=== PATIENT | male | born 1985 | race African-American/Black ===

== ENCOUNTER 2019-02-25 01:48 | Emergency (ER) | payer OTHER ==
[~2019-02-25] VITALS: Ht 185.4 cm; Wt 86.2 kg
[2019-02-25] MEDS ORDERED: SODIUM CHLORIDE 0.9% 1000ML 1,000 ML ONE (02:17)
[2019-02-25] MEDS ORDERED: ONDANSETRON HCL INJ 2MG/ML 2ML 2 MG/ML VIAL ONE (02:17)
[2019-02-25] MEDS ORDERED: MORPHINE SULFATE INJ 4 MG/ML INJ 1ML ONE (02:17)
[2019-02-25] MEDS ORDERED: KETOROLAC TROMETHAMINE 30 MG/ML VIAL IV STA (02:18)
[2019-02-25] MEDS ORDERED: MORPHINE SULFATE 2 MG/ML SYR 1ML IV STA (03:06)
[2019-02-25] MEDS ORDERED: ONDANSETRON HCL INJ 2MG/ML 2ML 2 MG/ML VIAL IV STA (03:06)
[2019-02-25] MEDS ORDERED: KETOROLAC TROMETHAMINE 30 MG/ML VIAL ONE (03:13)
[2019-02-25] MEDS ORDERED: SODIUM CHLORIDE 0.9% 1000ML 1,000 ML IV ONE (03:15)
--- NOTE | 2019-02-25 03:36 | Diagnostic Imaging Report ---
EXAM: CT Abdomen and Pelvis WITHOUT contrast INDICATION: Right back pain COMPARISON: None. TECHNIQUE: Abdomen and pelvis were scanned utilizing a multidetector helical scanner from the lung base to the pubic symphysis without administration of IV contrast. Absence of intravenous contrast decreases sensitivity for detection of focal lesions and vascular pathology. Coronal and sagittal reformations were obtained. Stone protocol is performed. IV CONTRAST: None ORAL CONTRAST: None COMPLICATIONS: None RADIATION DOSE: Total DLP: 625 mGy*cm Estimated effective dose: (DLP x 0.015 x size factor) mSv CTDIvol has been reviewed. It is below the limits set by the Radiation Protocol Committee (RPC). Dose modulation, iterative reconstruction, and/or weight based adjustment of the mA/kV was utilized to reduce the radiation dose to as low as reasonably achievable. FINDINGS: LINES and TUBES: None. LOWER THORAX: Unremarkable HEPATOBILIARY: No focal hepatic lesions. No biliary ductal dilation. GALLBLADDER: No radio-opaque stones or sludge. No wall thickening. SPLEEN: No splenomegaly. PANCREAS: No focal masses or ductal dilatation. ADRENALS: No adrenal nodules KIDNEYS/URETERS: A 4 mm obstructing calculus at the right ureterovesicular junction (series 2 image 80). Mild right hydroureteronephrosis. A few punctate bilateral nonobstructive renal calculi. No masses. GI TRACT: No abnormal distention, wall thickening, or evidence of bowel obstruction. Appendix is normal. PELVIC ORGANS/BLADDER: Urinary bladder is underdistended. LYMPH NODES: No lymphadenopathy. VESSELS: Unremarkable. PERITONEUM / RETROPERITONEUM: No free air or fluid. BONES: Unremarkable. SOFT TISSUES: Unremarkable. IMPRESSION: A 4 mm obstructing calculus at the right ureterovesicular junction with mild right hydroureteronephrosis. Signed by: Gus Bernstein DO on 02/25/2019 3:33 AM
[2019-02-25] MEDS ORDERED: MORPHINE SULFATE INJ 4 MG/ML INJ 1ML IV ONE (04:00)
== END 2019-02-25 04:00 | disposition home or self-care (01) ==
LOC: FSED 01:48
DX: R10.31 Right lower quadrant pain (principal); R11.2 Nausea with vomiting, unspecified; N20.1 Calculus of ureter
CPT/HCPCS: 74176; 99284; J1885; J2270 ×2; J2405; J7030

== ENCOUNTER 2019-07-31 04:43 | Emergency (ER) | payer OTHER ==
[~2019-07-31] VITALS: Ht 185.4 cm; Wt 92.1 kg
[2019-07-31] MEDS ORDERED: ONDANSETRON HCL INJ 2MG/ML 2ML 2 MG/ML VIAL IV STA (05:10)
[2019-07-31] MEDS ORDERED: MORPHINE SULFATE 2 MG/ML SYR 1ML IV STA (05:10)
[2019-07-31] MEDS ORDERED: KETOROLAC TROMETHAMINE 30 MG/ML VIAL IV ONE (05:15)
[2019-07-31] MEDS ORDERED: MORPHINE SULFATE INJ 4 MG/ML INJ 1ML ONE (05:22)
--- NOTE | 2019-07-31 06:29 | Diagnostic Imaging Report ---
EXAM: CT Abdomen and Pelvis WITHOUT contrast INDICATION: Left flank pain COMPARISON: Abdominal CT 02/25/2019. TECHNIQUE: Abdomen and pelvis were scanned utilizing a multidetector helical scanner from the lung base to the pubic symphysis without administration of IV contrast. Absence of intravenous contrast decreases sensitivity for detection of focal lesions and vascular pathology. Coronal and sagittal reformations were obtained. Routine protocol was performed. IV CONTRAST: None ORAL CONTRAST: None COMPLICATIONS: None RADIATION DOSE: Total DLP: 764 mGy*cm Estimated effective dose: (DLP x 0.015 x size factor) mSv CTDIvol has been reviewed. It is below the limits set by the Radiation Protocol Committee (RPC). Dose modulation, iterative reconstruction, and/or weight based adjustment of the mA/kV was utilized to reduce the radiation dose to as low as reasonably achievable. FINDINGS: LINES and TUBES: None. LOWER THORAX: Unremarkable HEPATOBILIARY: No focal hepatic lesions. No biliary ductal dilation. GALLBLADDER: No radio-opaque stones or sludge. No wall thickening. SPLEEN: No splenomegaly. PANCREAS: No focal masses or ductal dilatation. ADRENALS: No adrenal nodules KIDNEYS/URETERS: A 5 mm obstructive calculus in the mid left ureter with mild upstream left hydroureteronephrosis. Additional punctate nonobstructive bilateral nephrolithiasis. No cystic or solid mass lesions. GI TRACT: No abnormal distention, wall thickening, or evidence of bowel obstruction. Appendix is normal. PELVIC ORGANS/BLADDER: Unremarkable. LYMPH NODES: No lymphadenopathy. VESSELS: Unremarkable. PERITONEUM / RETROPERITONEUM: No free air or fluid. BONES: Unremarkable. SOFT TISSUES: Unremarkable. IMPRESSION: A 5 mm obstructive calculus in the mid left ureter with mild upstream left hydroureteronephrosis. Additional punctate nonobstructive bilateral nephrolithiasis. Signed by: Gus Bernstein DO on 07/31/2019 6:25 AM
--- NOTE | 2019-07-31 06:34 | NUR ---
pt sleeping at this time. nad noted
[2019-07-31] MEDS ORDERED: KETOROLAC TROME10 MG PO (06:44)
[2019-07-31] MEDS ORDERED: TYLENOL WITH C1 EACH PO (06:45)
[2019-07-31] MEDS ORDERED: FLOMAX0.4 MG PO (06:45)
== END 2019-07-31 07:00 | disposition home or self-care (01) ==
LOC: FSED 04:43
DX: R10.32 Left lower quadrant pain (principal); R11.2 Nausea with vomiting, unspecified; N20.2 Calculus of kidney with calculus of ureter
CPT/HCPCS: 74176; 80053; 81003; 85025; 99284; J1885; J2270; J2405

== ENCOUNTER 2019-12-20 10:10 | Emergency (ER) | payer SELFPAY ==
[~2019-12-20] VITALS: Ht 185.4 cm; Wt 93.0 kg
[~2019-12-20 10:10] MED LIST: FLOMAX0.4 MG PO; KETOROLAC TROME10 MG PO; TYLENOL WITH C1 EACH PO
[2019-12-20] MEDS ORDERED: KETOROLAC TROMETHAMINE 30 MG/ML VIAL IV STA (10:42)
[2019-12-20] MEDS ORDERED: ONDANSETRON HCL INJ 2MG/ML 2ML 2 MG/ML VIAL IV STA (10:42)
[2019-12-20] MEDS ORDERED: KETOROLAC TROMETHAMINE 30 MG/ML VIAL ONE (10:43)
[2019-12-20] MEDS ORDERED: SODIUM CHLORIDE 0.9% 1000ML 1,000 ML ONE (10:43)
[2019-12-20] MEDS ORDERED: SODIUM CHLORIDE 0.9% 1000ML 1,000 ML IV SCH (10:45)
[2019-12-20] MEDS ORDERED: ONDANSETRON HCL INJ 2MG/ML 2ML 2 MG/ML VIAL ONE (11:00)
--- NOTE | 2019-12-20 11:24 | Diagnostic Imaging Report ---
EXAMINATION: CT of the abdomen and pelvis without contrast. TECHNIQUE: Spiral CT images of the abdomen and pelvis were performed from the lung bases to the lesser trochanters. No intravenous contrast was given per renal stone protocol. Coronal and sagittal reformatted images were obtained. COMPARISON: CT abdomen and pelvis without contrast 07/31/2019 CLINICAL HISTORY:Left flank pain which radiates to left testicle for 2 days DISCUSSION: ABSENCE OF INTRAVENOUS CONTRAST DECREASES SENSITIVITY FOR DETECTION OF FOCAL LESIONS AND VASCULAR PATHOLOGY. ABDOMEN/PELVIS: LOWER THORAX: Unremarkable. HEPATOBILIARY: No focal hepatic lesions. No intra or extrahepatic biliary ductal dilation. GALLBLADDER: No radio-opaque stones or sludge. No wall thickening. SPLEEN: No splenomegaly. PANCREAS: No focal masses or ductal dilatation. ADRENALS: No adrenal nodules. KIDNEYS/URETERS: Right: Nonobstructing calculi, as follows: * 3 mm calculus in the superior pole (series 2, image 34), stable. * 2-3 mm calculus in the interpolar region (series 2, image 38), new * Punctate calculus in the mid to inferior aspect (series 2, image 41), stable No ureteral calculi, hydronephrosis or obstruction. No contour abnormalities or perinephric stranding. Left: Unchanged 5-6 mm obstructing calculus in the proximal to mid left ureter (coronal image 42), which results in mild left hydronephrosis and mild to moderate proximal hydroureter. Nonobstructing calculi as follows: * Punctate calculus in the superior to mid aspect (series 2, image 33), stable. * Punctate nonobstructing calculi in the inferior pole (series 2, images 39 and 41), stable. No contour abnormalities or perinephric stranding. PELVIC ORGANS/BLADDER: Bladder is grossly unremarkable. No calculi, wall thickening or focal lesions. Prostate is unremarkable. PERITONEUM/RETROPERITONEUM: No free air or fluid. LYMPH NODES: No intra-abdominal,retroperitoneal, pelvic or inguinal lymphadenopathy. VESSELS: Unremarkable for noncontrast exam. GI TRACT: No bowel dilation or evidence of obstruction. No pericolic inflammatory changes. Appendix is well identified and normal in caliber. BONES AND SOFT TISSUES: No aggressive lytic lesions. No suspicious focal sclerotic lesions. Soft tissues are unremarkable. IMPRESSION: 1. No interval change in 5-6 mm obstructing calculus in the proximal to mid left ureter, which results in mild left hydronephrosis and mild to moderate proximal hydroureter. 2. Stable bilateral nonobstructing calculi, as described. A new 2-3 mm nonobstructing calculus is noted in the interpolar region of the right kidney. Signed by: Dr. Néstor Chau M.D. on 12/20/2019 11:21 AM
[2019-12-20] MEDS ORDERED: MORPHINE SULFATE 2 MG/ML SYR 1ML IV STA (11:45)
[2019-12-20] MEDS ORDERED: MORPHINE SULFATE INJ 4 MG/ML INJ 1ML ONE (11:50)
[2019-12-20 11:55] VITALS: BP 125/66
--- NOTE | 2019-12-20 13:04 | NUR ---
Dr. Velasquez informed that pt does not want to leave and wants a different rx for pain meds as he states that tylenol #3 does not work for him. Pt states that he is still in pain, explained to the pt that he is going to be in pain until he passes his kidney stone.
== END 2019-12-20 13:08 | disposition home or self-care (01) ==
LOC: FSED 10:10
DX: R10.32 Left lower quadrant pain (principal); R11.2 Nausea with vomiting, unspecified; N20.2 Calculus of kidney with calculus of ureter; F17.210 Nicotine dependence, cigarettes, uncomplicated
CPT/HCPCS: 74176; 80048; 80076; 81003; 85025; 96374; 96375; 99284; J1885; J2270 ×2; J2405; J7030